=== PATIENT | male | born 1945 | race Caucasian/White ===

== ENCOUNTER 2017-01-31 13:06 | Outpatient (CLI) | payer MEDICARE ==
--- NOTE | 2017-01-31 15:55 | RAD ---
PA AND LATERAL CHEST: Date: 01-31-17 History: Dyspnea. FINDINGS: Cardiac silhouette is at the upper limits of normal in size. Pulmonary vasculature is within normal limits. There is mild ectasia and tortuosity of the thoracic aorta. Lungs are clear. Degenerative ch anges are seen in the spine. IMPRESSION: No acute cardiopulmonary process. POS: [facility]
== END 2017-01-31 13:07 | disposition home or self-care (01) ==
LOC: RAD 13:06
PROVIDERS: ATTEND Internal Medicine Critical Care Medicine
DX: R06.00 Dyspnea, unspecified (principal)
CPT/HCPCS: 71020

== ENCOUNTER 2017-08-29 13:04 | Outpatient (CLI) | payer MEDICARE | END 2017-08-29 13:05 | disposition home or self-care (01) | LOC: CP 13:04 | PROVIDERS: ATTEND Internal Medicine Critical Care Medicine | DX: J44.9 Chronic obstructive pulmonary disease, unspecified (principal) | CPT/HCPCS: 94060; 94727; 94729 ==

== ENCOUNTER 2020-08-24 12:40 | Outpatient (CLI) | payer MEDICARE | END 2020-08-24 12:41 | disposition home or self-care (01) | LOC: BICMRI 12:40 | PROVIDERS: ATTEND Orthopaedic Surgery | DX: M19.011 Primary osteoarthritis, right shoulder (principal); M25.711 Osteophyte, right shoulder; M77.8 Other enthesopathies, not elsewhere classified ==

== ENCOUNTER 2022-11-14 12:40 | Outpatient (CLI) | payer MEDICARE | END 2022-11-14 12:41 | disposition home or self-care (01) | LOC: SCSMRI 12:40 | PROVIDERS: ATTEND Nurse Practitioner Family | DX: M48.062 Spinal stenosis, lumbar region with neurogenic claudication (principal); M47.816 Spondylosis without myelopathy or radiculopathy, lumbar region; M51.36 Other intervertebral disc degeneration, lumbar region; M47.817 Spondylosis without myelopathy or radiculopathy, lumbosacral region; M51.37 Other intervertebral disc degeneration, lumbosacral region | CPT/HCPCS: 72148 ==